=== PATIENT | female | born 1990 | race Caucasian/White ===

== ENCOUNTER 2017-02-12 08:46 | Outpatient (CLI) ==
[2013-03-18 06:53] VITALS: BMI 31.2
[2017-02-12 09:26] LABS: SERUM PREGNANCY INTERNAL QC INTERNAL QC VALID
== END 2017-02-12 08:47 | disposition home or self-care (01) ==
LOC: LAB 08:46
PROVIDERS: ATTEND Nurse Practitioner Family
DX: N92.6 Irregular menstruation, unspecified (principal); R11.2 Nausea with vomiting, unspecified
CPT/HCPCS: 36415; 84703

== ENCOUNTER 2017-10-14 08:19 | Emergency (ER) ==
[2017-10-14 08:27] VITALS: BP 137/85; TEMP 97.5; BMI 24.4
[2017-10-14] MEDS ORDERED: ZOFRAN 4 MG/2 ML IM STA (08:48)
[2017-10-14] MEDS ORDERED: PHENERGAN 25 MG/ML VIAL IM STA (08:59)
[2017-10-14] MEDS ORDERED: SODIUM CHLORIDE 1,000 ML IV STA (09:50)
--- NOTE | 2017-10-14 09:54 | ED.PDOC ---
General ED Provider: Dr. KATHERINE VALLE Chief Complaint: Stated Complaint: vomiting Time Seen by Physician: 08:30 (vomiting , for a few days seen at all times with staff) Mode of Arrival: Walk-In Information Source: Patient, Family Exam Limitations: No limitations, Other (history of 1 prior loss ) Primary Care Provider: [facility] Nursing and Triage Documentation Reviewed and Agree: Yes (negative trauma reported, no vaginal , bleeding or spotting) Reviewed sepsis parameters & appropriate labs ordered?: Yes ( seen with florecita from lab at all times ) System Inflammatory Response Syndrome: Not Applicable Sepsis Protocol: For patient's 13 years and over: Temp is 96.8 and below OR 101 and greater Pulse >90 BPM Resp >20/minute Acutely Altered Mental Status Are patient's symptoms suggestive of a new infection, such as: -Pneumonia -Skin, Soft Tissue -Endocarditis -UTI -Bone, Joint Infection -Implantable Device -Acute Abdominal Infection -Wound Infection -Meningitis -Blood Stream Catheter Infection -Unknown System Inflammatory Response Syndrome: Not Applicable GI Complaint Exam - Vomiting/Diarrhea Complaint/Exam Onset/Duration: 1 week worse today Symptoms Are: Still present Episodes of Vomiting over last 24 Hours: 10 Episodes of Diarrhea Over Last 24 Hours: 0 Initial Severity: Moderate Current Severity: None Character of Vomiting: Reports: Non-bilious Aggravating: Reports: None Associated Signs and Symptoms: Denies: Dizziness, Light-headedness, Melena, Hematemesis, Fever, Abdominal pain, Cramping Related History: Reports: Similar episode : 2 Hx Total # of Abortions (Spontaneous & Elective): 1 Recent Positive Test: Yes (8 weeks) Non-GI Risk Factors: Reports: None Surgical Obstruction Risk Factors: Reports: None Related Surgical History: Reports: None Abdominal Findings: Present: None Kussmaul Respirations Present: No Differential Diagnoses: Other (hyperemesis garvid) Review of Systems - Review Of Systems Constitutional: Reports: No symptoms Eyes: Reports: No symptoms Ears, Nose, Mouth, Throat: Reports: No symptoms Respiratory: Reports: No symptoms Cardiac: Reports: No symptoms GI: Reports: Nausea, Poor appetite, Poor fluid intake : Reports: No symptoms Musculoskeletal: Reports: No symptoms Skin: Reports: No symptoms Neurological: Reports: No symptoms Endocrine: Reports: No symptoms Hematologic/Lymphatic: Reports: No symptoms All Other Systems: Reviewed and Negative Past Medical History - Past Medical History Previously Healthy: Yes Endocrine: Reports: None Cardiovascular: Reports: None Respiratory: Reports: None Hematological: Reports: None Gastrointestinal: Reports: None Genitourinary: Reports: None Neuro/Psych: Reports: None Musculoskeletal: Reports: None Cancer: Reports: None Last Menstrual Period: aug 15 - Surgical History General Surgical History: Reports: None - Family History Family History: Reports: None - Social History Smoking Status: Current every day smoker, Light tobacco smoker Hx Substance Use: No Alcohol Screening: Occasionally Physical Exam - Physical Exam Appearance: Well-appearing, No pain distress, Well-nourished Ill-appearing: Mild Pain Distress: Mild Eyes: OMARI, EOMI, Conjunctiva clear ENT: Ears normal, Nose normal, Oropharynx normal Respiratory: Airway patent, Breath sounds clear, Breath sounds equal, Respirations nonlabored Cardiovascular: RRR, Pulses normal, No rub, No murmur GI/: Soft, Nontender, No masses, Bowel sounds normal, No Organomegaly Musculoskeletal: Normal strength, ROM intact, No edema, No calf tenderness Skin: Warm, Dry, Normal color Neurological: Sensation intact, Motor intact, Reflexes intact, Cranial nerves intact, Alert, Oriented Psychiatric: Affect appropriate, Mood appropriate Critical Care Note - Critical Care Note Total Time (mins): 0 Course - Course Hematology/Chemistry: 10/14/17 08:50 10/14/17 08:50 Orders, Labs, Meds: Lab Review 10/14/17 10/14/17 10/14/17 08:50 08:50 08:50 WBC 12.92 H RBC 4.52 Hgb 15.0 Hct 40.5 MCV 89.6 MCH 33.2 H MCHC 37.0 H RDW Coeff of Jorge Luis 12.0 Plt Count 213 Immature Gran % (Auto) 0.3 Neut % (Auto) 84.1 Lymph % (Auto) 12.6 [place] % (Auto) 2.6 Eos % (Auto) 0.2 Baso % (Auto) 0.2 Immature Gran # (Auto) 0.0 Neut # 10.9 H Lymph # 1.6 [place] # 0.3 L Eos # 0.0 Baso # 0.0 Sodium 140 Potassium 3.0 L Chloride 103 Carbon Dioxide 23 Anion Gap 17.0 BUN 6 L Creatinine 0.70 Estimated GFR (MDRD) 101.00 BUN/Creatinine Ratio 8.57 Glucose 112 H Calcium 9.9 Total Bilirubin 1.0 AST 15 ALT 11 L Alkaline Phosphatase 60 Total Protein 7.9 Albumin 4.3 Globulin 3.6 Albumin/Globulin Ratio 1.19 Procalcitonin < 0.05 Urine Color Urine Clarity Urine pH Ur Specific [place] Urine Protein Urine Glucose (UA) Urine Ketones Urine Blood Urine Nitrite Urine Bilirubin Urine Urobilinogen Ur Leukocyte Esterase Ur Squamous Epith Cells Calcium Oxalate Crystal Amorphous Sediment Influenza A (Rapid) Influenza B (Rapid) 10/14/17 10/14/17 09:10 09:10 WBC RBC Hgb Hct MCV MCH MCHC RDW Coeff of Jorge Luis Plt Count Immature Gran % (Auto) Neut % (Auto) Lymph % (Auto) [place] % (Auto) Eos % (Auto) Baso % (Auto) Immature Gran # (Auto) Neut # Lymph # [place] # Eos # Baso # Sodium Potassium Chloride Carbon Dioxide Anion Gap BUN Creatinine Estimated GFR (MDRD) BUN/Creatinine Ratio Glucose Calcium Total Bilirubin AST ALT Alkaline Phosphatase Total Protein Albumin Globulin Albumin/Globulin Ratio Procalcitonin Urine Color Yellow Urine Clarity Cloudy Urine pH 8.5 Ur Specific [place] 1.020 Urine Protein 1+ Urine Glucose (UA) Negative Urine Ketones 4+ Urine Blood Trace-intact Urine Nitrite Negative Urine Bilirubin 1+ Urine Urobilinogen 1.0 Ur Leukocyte Esterase Trace Ur Squamous Epith Cells 5-10 Calcium Oxalate Crystal 1+ Amorphous Sediment 3+ Influenza A (Rapid) Negative by naat Influenza B (Rapid) Negative by naat Orders Category Date Time Status ED IV/MEDIPORT/POWERPORT .ONCE EMERGENCY 10/14/17 09:50 Ordered BLOOD CULTURE (ED ONLY) Stat LAB 10/14/17 08:40 Ordered CBC W/ AUTO DIFF Stat LAB 10/14/17 08:36 Ordered COMPREHENSIVE METABOLIC PANEL Stat LAB 10/14/17 08:36 Ordered FLU A/B MOLECULAR Stat LAB 10/14/17 08:36 Uncollected MOLECULAR GROUP A STREP Stat LAB 10/14/17 08:36 Uncollected PROCALCITONIN Stat LAB 10/14/17 08:40 Ordered URINALYSIS C & S IF INDICATED Stat LAB 10/14/17 08:36 Uncollected 0.9 % Sodium Chloride [Saline Flush] MEDS 10/14/17 09:50 Ordered 1 syr IVF PRN PRN Promethazine HCl [Phenergan 25 mg/ml Vial] MEDS 10/14/17 08:59 Stat 25 mg IM ONCE STA SODIUM CHLORIDE 0.9% @ 1,000 MLS/HR(1,000ml) MEDS 10/14/17 09:50 Ordered Sodium Chloride 0.9% [Sodium Chloride] 1,000 ml IV BOLUS Medications Generic Name Dose Route Start Last Admin Trade Name Freq PRN Reason Stop Dose Admin Sodium Chloride 1,000 mls @ 1,000 mls/hr 10/14/17 09:50 Sodium Chloride IV 10/14/17 10:49 BOLUS STA Sodium Chloride 1 syr 10/14/17 09:50 Saline Flush IVF PRN PRN To flush IV Discontinued Medications Generic Name Dose Route Start Last Admin Trade Name Freq PRN Reason Stop Dose Admin Promethazine HCl 25 mg 10/14/17 08:59 10/14/17 09:07 Phenergan 25 Mg/Ml Vial IM 10/14/17 09:00 25 mg ONCE STA Administration Vital Signs: Temp Pulse Resp BP Pulse Ox 10/14/17 08:20 97.5 F L 88 20 137/85 98 Departure - Departure Time of Disposition: 11:00 (discussed all the labs with grandmother at computer terminal placed a call to [facility] all info given to family TONY CHUNG present at all times ) Disposition: TSF SHORT-TRM HOSP Discharge Problem: Hyperemesis gravidarum before end of 22 week gestation with carbohydrate depletion Instructions: Hyperemesis Gravidarum (ED) Condition: Good Pt referred to PMD for follow-up: Yes IPMP verified?: No Additional Instructions: Please call your Family Physician as soon as possible to schedule a follow-up appointment. Allergies/Adverse Reactions: Allergies No Known Drug Allergies Adverse Reaction (Verified 10/14/17 08:30) Home Medications: Ambulatory Orders Promethazine HCl 25 mg PO DIRECTED 10/14/17 Transfer Form Completed: Yes Disposition Discussed With: Patient, Family
[2017-10-14] MEDS ORDERED: ZOFRAN 4 MG/2 ML IVP STA (10:13)
== END 2017-10-14 12:50 | disposition short-term general hospital (02) ==
LOC: ED 08:19
DX: O21.1 Hyperemesis gravidarum with metabolic disturbance (principal); Z3A.00 Weeks of gestation of pregnancy not specified; F17.210 Nicotine dependence, cigarettes, uncomplicated
CPT/HCPCS: 36415; 80053; 81001; 84145; 85025; 87040; 87502; 87651; 96361; 96374; 99284

== ENCOUNTER 2018-01-12 13:37 | Emergency (ER) ==
[2018-01-12 13:43] VITALS: BP 117/68; TEMP 98.9; BMI 25.0
[2018-01-12] MEDS ORDERED: ZOFRAN 4 MG/2 ML IVP STA (15:29)
[2018-01-12] MEDS ORDERED: SODIUM CHLORIDE 1,000 ML IV STA (15:29)
[2018-01-12] MEDS ORDERED: DILAUDID IVP STA (15:30)
[2018-01-12] MEDS ORDERED: ANCEF 1 GM in SODIUM CHLORIDE 100 ML IV STA (15:30)
--- NOTE | 2018-01-12 15:53 | ED.PDOC ---
General ED Provider: Dr. SÁNCHEZ NUÑEZ Chief Complaint: Abscess Stated Complaint: Severe pain in RT gluteal buttocks region. Patient is a currently 20 wks gestation which has developed an acute area of swelling and pain in her medial Rt Perigluteal region consistent with an abscess. Onset last with progressive worsening. Has had similar problem in past. 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 [facility] Time Seen by Physician: 14:15 Mode of Arrival: Walk-In Information Source: Patient, Family Exam Limitations: Clinical condition Nursing and Triage Documentation Reviewed and Agree: Yes Reviewed sepsis parameters & appropriate labs ordered?: Yes System Inflammatory Response Syndrome: Not Applicable Sepsis Protocol: For patient's 13 years and over: Temp is 96.8 and below OR 101 and greater Pulse >90 BPM Resp >20/minute Acutely Altered Mental Status Are patient's symptoms suggestive of a new infection, such as: -Pneumonia -Skin, Soft Tissue -Endocarditis -UTI -Bone, Joint Infection -Implantable Device -Acute Abdominal Infection -Wound Infection -Meningitis -Blood Stream Catheter Infection -Unknown System Inflammatory Response Syndrome: Not Applicable Skin Complaint Exam - Skin/Soft Tissue Complaint/Exam Symptoms Are: Still present Timing: Constant Initial Severity: Severe Current Severity: Severe Location: Rt-medial perigluteal region Character: Reports: Redness, Swelling, Raised, Painful Aggravating: Reports: Touch Alleviating: Reports: None Associated Signs and Symptoms: Reports: Tenderness, Red streaks Related History: Reports: Similar episode Related Surgical History: Reports: None Recent Exposure to Others w/Similar Symptoms: No Skin Findings: Present: Erythema, Induration, Fluctuant mass, Dry scaly skin Joint Tenderness Present: No Differential Diagnoses: Abscess, Cellulitis Review of Systems - Review Of Systems Constitutional: Reports: No symptoms Eyes: Reports: No symptoms Ears, Nose, Mouth, Throat: Reports: No symptoms Respiratory: Reports: No symptoms Cardiac: Reports: No symptoms GI: Reports: No symptoms : Reports: No symptoms Musculoskeletal: Reports: No symptoms Skin: Reports: No symptoms, Change in color Neurological: Reports: No symptoms Endocrine: Reports: No symptoms Hematologic/Lymphatic: Reports: No symptoms All Other Systems: Reviewed and Negative Past Medical History - Past Medical History Previously Healthy: Yes Endocrine: Reports: None Cardiovascular: Reports: None Respiratory: Reports: None Hematological: Reports: None Gastrointestinal: Reports: None Genitourinary: Reports: None Neuro/Psych: Reports: None Musculoskeletal: Reports: None Cancer: Reports: None Last Menstrual Period: 5 months ago - Surgical History General Surgical History: Reports: None (D & C/ RH neg) - Family History Family History: Reports: None - Social History Smoking Status: Current every day smoker, Light tobacco smoker Hx Substance Use: No Alcohol Screening: None Physical Exam - Physical Exam Appearance: Ill-appearing, Well-nourished Ill-appearing: Moderate Pain Distress: Severe Eyes: OMARI, EOMI, Conjunctiva clear ENT: Ears normal, Nose normal, Oropharynx normal Respiratory: Airway patent, Breath sounds clear, Breath sounds equal, Respirations nonlabored Cardiovascular: RRR, Pulses normal, No rub, No murmur GI/: Soft, Nontender, No masses, Bowel sounds normal, No Organomegaly, Tender (area 5X 6 cm area of reddness, edema, to medial gluteal region extending from outer gluteal region to the perianal region ) Musculoskeletal: Normal strength, ROM intact, No edema, No calf tenderness Skin: Warm, Dry, Normal color Neurological: Sensation intact, Motor intact, Reflexes intact, Cranial nerves intact, Alert, Oriented Psychiatric: Affect appropriate, Mood appropriate Critical Care Note - Critical Care Note Total Time (mins): 30 Course - Course Hematology/Chemistry: 01/12/18 15:45 01/12/18 15:45 Orders, Labs, Meds: Lab Review 01/12/18 01/12/18 01/12/18 15:45 15:45 15:45 WBC 13.44 H RBC 3.01 L Hgb 10.3 L Hct 29.0 L MCV 96.3 MCH 34.2 H MCHC 35.5 H RDW Coeff of Jorge Luis 13.2 Plt Count 190 Immature Gran % (Auto) 0.4 Neut % (Auto) 77.7 Lymph % (Auto) 15.5 [place] % (Auto) 5.8 Eos % (Auto) 0.4 Baso % (Auto) 0.2 Immature Gran # (Auto) 0.1 Neut # (Auto) 10.4 H Lymph # (Auto) 2.1 [place] # (Auto) 0.8 Eos # (Auto) 0.1 Baso # (Auto) 0.0 ESR 46 H Sodium 137 Potassium 3.5 Chloride 106 Carbon Dioxide 20 L Anion Gap 14.5 BUN 6 L Creatinine 0.54 L Estimated GFR (MDRD) 135.00 BUN/Creatinine Ratio 11.11 Glucose 82 Calcium 8.8 Total Bilirubin 0.7 AST 12 L ALT 7 L Alkaline Phosphatase 68 Total Protein 6.6 Albumin 3.0 L Globulin 3.6 Albumin/Globulin Ratio 0.83 Orders Category Date Time Status IV [ED IV/MEDIPORT/POWERPORT] .ONCE EMERGENCY 01/12/18 15:28 Active BLOOD CULTURE (ED ONLY) Stat LAB 01/12/18 15:45 Received CBC W/ AUTO DIFF Stat LAB 01/12/18 15:45 Completed CMP [COMPREHENSIVE METABOLIC PANEL] Stat LAB 01/12/18 15:45 Completed ESR Stat LAB 01/12/18 15:45 Completed 0.9 % Sodium Chloride [Saline Flush] MEDS 01/12/18 15:28 Active 1 syr IVF PRN PRN Cefazolin Sodium [Ancef] 1 gm MEDS 01/12/18 15:30 Discontinued 0.9 % Sodium Chloride [Sodium Chloride] 100 ml IV ONCE Hydromorphone HCl [Dilaudid] MEDS 01/12/18 15:30 Discontinued 0.5 mg IVP ONCE STA Ondansetron HCl/Pf [Zofran 4 mg/2 ml] MEDS 01/12/18 15:29 Discontinued 4 mg IVP ONCE STA Sodium Chloride 0.9% [Sodium Chloride] 1,000 ml MEDS 01/12/18 15:29 Active IV BOLUS Medications Generic Name Dose Route Start Last Admin Trade Name Freq PRN Reason Stop Dose Admin Sodium Chloride 1,000 mls @ 500 mls/hr 01/12/18 15:29 Sodium Chloride IV 01/12/18 17:28 BOLUS STA Sodium Chloride 1 syr 01/12/18 15:28 Saline Flush IVF PRN PRN To flush IV Discontinued Medications Generic Name Dose Route Start Last Admin Trade Name Freq PRN Reason Stop Dose Admin Hydromorphone HCl 0.5 mg 01/12/18 15:30 Dilaudid IVP 01/12/18 15:31 ONCE STA Cefazolin Sodium 1 gm/ Sodium 100 mls @ 100 mls/hr 01/12/18 15:30 Chloride IV 01/12/18 16:29 ONCE STA Ondansetron HCl 4 mg 01/12/18 15:29 Zofran 4 Mg/2 Ml IVP 01/12/18 15:30 ONCE STA Vital Signs: Temp Pulse Resp BP Pulse Ox 01/12/18 13:38 98.9 F 97 H 20 117/68 98 Departure - Departure Time of Disposition: 16:45 Disposition: TSF SHORT-TRM HOSP Discharge Problem: Abscess and cellulitis of gluteal region, Condition: Good Pt referred to PMD for follow-up: Yes (Dr Connolly [facility]) IPMP verified?: No Allergies/Adverse Reactions: Allergies No Known Drug Allergies Adverse Reaction (Verified 01/12/18 13:44) Home Medications: Ambulatory Orders Vit Calc,Iron,Folic [ Vitamins] 1 each PO DAILY 01/12/18 Disposition Discussed With: Patient, Family, [facility] Additional Information: Initially recommended treatment with IV fluids, antibiotics and zofran. 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
== END 2018-01-12 17:12 | disposition short-term general hospital (02) ==
LOC: ED 13:37
DX: L02.31 Cutaneous abscess of buttock (principal); L03.317 Cellulitis of buttock; Z3A.20 20 weeks gestation of pregnancy; F17.210 Nicotine dependence, cigarettes, uncomplicated
CPT/HCPCS: 36415; 80053; 85025; 85651; 87040; 99285